=== PATIENT | male | born 1995 | race Caucasian/White ===

== ENCOUNTER 2016-05-09 14:13 | Emergency (ER) | payer OTHER ==
[~2016-05-09] VITALS: Ht 180.3 cm; Wt 76.5 kg
[~2016-05-09 14:13] MED LIST: CEPH500 PO
[2016-05-09 14:30] VITALS: BP 116/73; PULSE 89; RESP 18; TEMP 98.6; O2SAT 100
--- NOTE | 2016-05-09 14:52 | PD ---
HPI Chief Complaint: Injury Time Seen by Provider: 14:46 Travel History International Travel<30 days: No Contact w/Intl Traveler<30days: No Traveled to known affect area: No History of Present Illness HPI Healthy 20-year-old male here with complaint of right ankle pain. Patient was playing basketball when he landed on the ankle, in her toe in with another player. Since he notes high ankle pain. Patient points to the distal tib-fib region. He has been able to ambulate, but states he feels unsteady as though his ankles going to give out on him. He denies any numbness or tingling. No notable swelling. Injury just happened prior to arrival. [facility] Past Medical History Medical History: Denies Significant Hx Diminished Hearing: No Immunizations Current: Yes Tetanus Vaccination: < 5 Years Influenza Vaccination: No Past Surgical History Genitourinary Surgery: Yes (kidney reflux) Other Surgery: Yes (NOSE SX. TIMES 2) Social History Alcohol Use: No Tobacco Use: No Substance Use: No Allergies-Medications (Allergen,Severity, Reaction): Coded Allergies: No Known Allergies (Verified , 05/09/16) Reported Meds & Prescriptions Reported Meds & Active Scripts Active Keflex 500 mg Cap (Cephalexin Monohydrate) 500 Mg Cap 500 Mg PO TID 7 Days Review of Systems Except as stated in HPI: all other systems reviewed are Neg Physical Exam Narrative GENERAL: Well-appearing male in no acute distress SKIN: Warm and dry. HEAD: Normocephalic. EYES: No scleral icterus. No injection or drainage. ENT: Mucous membranes pink and moist. NECK: Supple CARDIOVASCULAR: Regular rate and rhythm. RESPIRATORY: No accessory muscle use. MUSCULOSKELETAL: No obvious deformities. No edema. No ecchymosis. No tenderness to palpation of the medial or lateral malleolus. Patient has tenderness with syndesmosis stress testing. He has able to flex and extend the ankle without any difficulty. Good distal sensation and pulses. No tenderness to palpation of the fibular head. NEUROLOGICAL: Awake and alert. Normal speech. PSYCHIATRIC: Appropriate mood and affect; insight and judgment normal. Data Data Last Documented VS Vital Signs Date Time Temp Pulse Resp B/P Pulse Ox O2 Delivery O2 Flow Rate FiO2 05/09/16 14:30 98.6 89 18 116/73 100 Orders Ankle, Complete ([id number]) (05/09/16 ) Tibia/Fibula (Ap/Lat) (05/09/16 ) Ibuprofen (Motrin) (05/09/16 15:00) MDM Medical Decision Making Medical Screen Exam Complete: Yes Emergency Medical Condition: Yes Medical Record Reviewed: Yes Differential Diagnosis 20-year-old male here with complaint of right ankle pain after basketball injury. Exam is most consistent with high ankle sprain, syndesmosis injury. Differential includes fracture, less likely dislocation or fibular head fracture. Narrative Course Patient given Motrin. X-ray of the right ankle and tib-fib showed no bony injury. Patient reassured and discharged home. Diagnosis Primary Impression: High ankle sprain of right lower extremity Qualified Code: S93.431A - High ankle sprain of right lower extremity, initial encounter Referrals: Primary Care Physician as needed Additional Instructions: Tylenol, ibuprofen as needed for pain. Ice the affected area 20 minutes at a time 3-4 times daily. Follow-up with primary care provider if symptoms persist. Med/Other Pt SpecificInfo: No Change to Meds Disposition: 01 DISCHARGE HOME Condition: Stable Allison Portillo MD May 09, 2016 14:52
[2016-05-09] MEDS ORDERED: IBUPROFEN 800 MG TAB PO ONE (15:00)
--- NOTE | 2016-05-09 15:43 | RADHPO ---
EXAM DATE/TIME: 05/09/2016 15:05 [facility] COMPARISON: No previous studies available for comparison. INDICATIONS : Right ankle pain, hurt playing basketball MEDICAL HISTORY : None. SURGICAL HISTORY : None. ENCOUNTER: Initial ACUITY: 1 day PAIN SCORE: 7/10 LOCATION: Right ankle FINDINGS: Three view exam was performed of the right ankle. The bony structures are in normal alignment. No e vidence of fracture, dislocation, or soft tissue swelling. The ankle mortise is intact. No radiopaq ue foreign bodies are seen. Bony mineralization is normal. CONCLUSION: No evidence of recent bony injury. Calderon Ortega MD on May 09, 2016 at 15:40 Board Certified Radiologist. This report was verified electronically.
--- NOTE | 2016-05-09 16:00 | RADHPO ---
EXAM DATE/TIME: 05/09/2016 15:05 [facility] COMPARISON: No previous studies available for comparison. INDICATIONS : Right lower leg pain, hurt playing basketball MEDICAL HISTORY : None. SURGICAL HISTORY : None. ENCOUNTER: Initial ACUITY: 1 day PAIN SCORE: 7/10 LOCATION: Right lower leg FINDINGS: Two view examination of the right tibia demonstrates no evidence of fracture or dislocation. Bony mi neralization is normal. The soft tissue structures are intact. CONCLUSION: Negative exam. Calderon Ortega MD on May 09, 2016 at 15:58 Board Certified Radiologist. This report was verified electronically.
== END 2016-05-09 16:05 | disposition home or self-care (01) ==
LOC: PHEFT 14:13
DX: S93.431A Sprain of tibiofibular ligament of right ankle, initial encounter (principal); W51.XXXA Accidental striking against or bumped into by another person, initial encounter; Y93.67 Activity, basketball
CPT/HCPCS: 73590; 73610; 99283